=== PATIENT | male | born 1960 | race American Indian/Alaskan Native ===

== ENCOUNTER 2020-08-18 16:29 | Emergency (ER) | payer OTHER, SELFPAY ==
[2020-08-18] MEDS ORDERED: ASPIRIN 325 MG TAB PO ONE (17:08)
--- NOTE | 2020-08-18 17:57 | XRay Report ---
CHEST 2 VIEWS INDICATION / CLINICAL INFORMATION: CP. COMPARISON: None available. FINDINGS: SUPPORT DEVICES: Left-sided cardiac conduction device. HEART / MEDIASTINUM: No significant abnormality. LUNGS / PLEURA: No significant pulmonary or pleural abnormality. No pneumothorax. ADDITIONAL FINDINGS: No significant additional findings. IMPRESSION: 1. No acute cardiopulmonary abnormality. Signer Name: Rafael Hall MD Signed: 08/18/2020 5:53 PM Workstation Name: [id number]
[2020-08-18 18:18] LABS: Basophils % (Auto) 0.5 % (0.0-1.8); Eosinophils % (Auto) 0.4 % (0.0-4.3); Hematocrit 44.1 % (35.5-45.6); Hemoglobin 15.2 gm/dl (11.8-15.2); Lymphocytes # (Auto) 1.9 K/mm3 (1.2-5.4); Lymphocytes % (Auto) 19.7 % (13.4-35.0); Mean Corpuscular HGB Conc 34 % (32-34); Mean Corpuscular Volume 93 fl (84-94); Monocytes # (Auto) 0.7 K/mm3 (0.0-0.8); Monocytes % (Auto) 7.9 % (0.0-7.3); Platelet Count 282 K/mm3 (140-440); Red Blood Count 4.73 M/mm3 (3.65-5.03); Red Cell Distribution Width 13.2 % (13.2-15.2)
[2020-08-18 18:40] LABS: Alanine Aminotransferase 20 units/L (7-56); Albumin 4.2 g/dL (3.9-5); BUN/Creatinine Ratio 9; Blood Urea Nitrogen 10 mg/dL (9-20); Calcium 9.3 mg/dL (8.4-10.2); Hemolysis Index 14
--- NOTE | 2020-08-18 20:01 | Event Note ---
ED Screening Note Date of service: 08/18/20 Time: 19:54 ED Screening Note: 59-year-old male patient presents to the emergency department for chest pain evaluation and mental health evaluation. CHEST PAIN: Patient complains of left-sided chest pain for 3 days. Describes the pain as a burning sensation. 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 He has been prescribed nitroglycerin by his die finisher forging to use as needed. States he has not taken his nitroglycerin because he does not have the medication with him. He left the medicine behind when he came to [place] from out of state. He is unsure if he has ever undergone cardiac catheterization. Patient was reportedly evaluated at [facility] for his chest pain last week. MENTAL HEALTH: Patient complains of auditory hallucinations. He has a history of schizophrenia. He has been out of his psychiatric medications due to recent relocation. He states the voices are "saying nasty things to him." When asked about suicidal ideation, patient "sometimes I do but I'm trying not to go there." Patient states, "I don't feel safe going back out onto the streets." General: Awake, appropriately interactive, no acute distress. Neck: Supple. Full range of motion intact. Cardiovascular: Normal peripheral perfusion. Pulmonary: No respiratory distress. Patient is speaking normally without use of accessory muscles. Skin: No apparent rashes or lesions. Neurological: No facial asymmetry. Speech is clear. Follows commands. Patient is alert and oriented. Musculoskeletal: Moves all four extremities spontaneously with normal range of motion. Psych: Cooperative. Appropriate mood and affect. I have greeted and performed a focused rapid initial assessment of this patient. A comprehensive ED assessment and evaluation of the patient, analysis of all test results, and completion of the medical decision-making process will be conducted by additional ED providers. This initial assessment/diagnostic orders/clinical plan/treatment(s) is/are subject to change based on patients health status, clinical progression and re-assessment. Further treatment and workup at subsequent clinical provider's discretion. Patient/guardian urged not to elope from the ED as their condition may be serious if not clinically assessed and managed.
--- NOTE | 2020-08-18 22:24 | Emergency Department Report ---
ED Psych HPI - General Chief Complaint: Chest Pain Stated Complaint: CHEST PAIN Time Seen by Provider: 08/18/20 22:10 Source: patient Mode of arrival: Ambulatory - History of Present Illness Initial Comments: CC: "I have not been feeling good in a while. The voices in my head make my heart hurt. I have not been feeling well for a long time." HPI: This is a 59 yo male with hx of schizophrenia in pacemaker in situ who presents with hallucinations, depressed mood and chest pain. Patient lives in a town outside of [facility]. Recently he ook a [employer] to [place] in order in order to get away from his life in [place]. At the [employer] station, he became ill. He went to [facility] on Tuesday for evaluation for chest pain. He was discharged. He explained that the staff at the outside hospital did not realize that "I needed help." He needed mental health resources and [place]. He wanted to be placed at a rehab facility near [place]. His family members live in [place] and another city in [place]. Patient states that "my heart hurt". However his main concern is hallucinations. He states that his mind is just racing. No previous history of heart attack. Chest pain occurs when he becomes upset. He is currently homeless. He slept on the side of the highway last night. He does receive disability payments. He does have income. He is insured with Medicare. He spoke with his fiance and older brother today per phone. However he does not have a plan to return to [place] or to be with his family members as well [place]. He denies suicidal ideation or homicidal ideation. He does have auditory hallucinations. He states that he has been compliant with psychiatric medications. Currently he does not feel that his medication regimen is effective. MD Complaint: feels depressed, other (Racing thoughts auditory hallucinations) -: week(s) (Several weeks) Associated Psychiatric Symptoms: depression, racing thoughts, auditory hallucinations History of same: Yes Quality: constant Improves With: none Worsens With: none Context: significant life stressor (Recently moved from [place]) Associated Symptoms: other (Chest pain) Treatments Prior to Arrival: other (Evaluated outside hospital) - Related Data Previous Rx's Medication Instructions Recorded Last Taken Type risperiDONE [RisperDAL] 1 mg PO BID #60 tablet 08/19/20 Unknown Rx Allergies Allergy/AdvReac Type Severity Reaction Status Date / Time No Known Allergies Allergy Verified 08/19/20 08:05 ED Review of Systems ROS: Stated complaint: CHEST PAIN Other details as noted in HPI Comment: All other systems reviewed and negative Constitutional: denies: fever, malaise Respiratory: denies: cough Cardiovascular: chest pain Gastrointestinal: denies: abdominal pain Skin: denies: rash, lesions ED Past Medical Hx - Past Medical History Previous Medical History?: Yes Hx Arthritis: Yes Hx Psychiatric Treatment: Yes (Schizophrenia) Additional medical history: Pacemaker - Surgical History Past Surgical History?: Yes Additional Surgical History: Pacemaker - Family History Family history: other (Patient is unable to recall family history) - Social History Smoking Status: Current Every Day Smoker Substance Use Type: None - Medications Home Medications: Home Medications Medication Instructions Recorded Confirmed Last Taken Type risperiDONE [RisperDAL] 1 mg PO BID #60 tablet 08/19/20 Unknown Rx ED Physical Exam - General Limitations: No Limitations General appearance: alert, in no apparent distress, other (Tearful, dirty clothing) - Head Head exam: Present: atraumatic, normocephalic - Eye Eye exam: Present: conjunctival injection. Absent: scleral icterus - ENT ENT exam: Present: mucous membranes moist - Neck Neck exam: Present: normal inspection, full ROM - Respiratory Respiratory exam: Present: normal lung sounds bilaterally. Absent: respiratory distress, wheezes, rales, stridor - Cardiovascular Cardiovascular Exam: Present: regular rate, normal rhythm, normal heart sounds. Absent: systolic murmur, diastolic murmur, rubs, gallop - GI/Abdominal GI/Abdominal exam: Present: soft, normal bowel sounds. Absent: distended, tenderness, guarding, rebound - Rectal Rectal exam: Present: deferred - Extremities Exam Extremities exam: Present: normal inspection - Neurological Exam Neurological exam: Present: alert, oriented X3 - Psychiatric Psychiatric exam: Present: normal affect, depressed - Skin Skin exam: Present: warm, dry, intact, normal color. Absent: rash ED Course Vital Signs 08/18/20 08/18/20 08/19/20 17:06 23:04 08:01 Temperature 97.8 F Pulse Rate 63 Respiratory 18 18 18 Rate Blood Pressure [Right] O2 Sat by Pulse 99 99 Oximetry 08/19/20 08:04 Temperature 97.8 F Pulse Rate 69 Respiratory 18 Rate Blood Pressure 106/70 [Right] O2 Sat by Pulse 96 Oximetry ED Medical Decision Making - Lab Data Result diagrams: 08/18/20 17:56 08/18/20 17:56 Laboratory Results - last 24 hr 08/18/20 08/18/20 08/18/20 17:56 17:56 19:38 WBC 9.5 RBC 4.73 Hgb 15.2 Hct 44.1 MCV 93 MCH 32 MCHC 34 RDW 13.2 Plt Count 282 Lymph % (Auto) 19.7 [place] % (Auto) 7.9 H Eos % (Auto) 0.4 Baso % (Auto) 0.5 Lymph # (Auto) 1.9 [place] # (Auto) 0.7 Eos # (Auto) 0.0 Baso # (Auto) 0.0 Seg Neutrophils % 71.5 H Seg Neutrophils # 6.8 Sodium 142 Potassium 4.1 Chloride 106.8 Carbon Dioxide 27 Anion Gap 12 BUN 10 Creatinine 1.1 Estimated GFR > 60 BUN/Creatinine Ratio 9 Glucose 81 Calcium 9.3 Total Bilirubin 0.90 AST 21 ALT 20 Alkaline Phosphatase 75 Troponin T < 0.010 < 0.010 Total Protein 6.7 Albumin 4.2 Albumin/Globulin Ratio 1.7 TSH Salicylates Acetaminophen Plasma/Serum Alcohol 08/18/20 08/18/20 08/18/20 20:05 20:05 20:05 WBC RBC Hgb Hct MCV MCH MCHC RDW Plt Count Lymph % (Auto) [place] % (Auto) Eos % (Auto) Baso % (Auto) Lymph # (Auto) [place] # (Auto) Eos # (Auto) Baso # (Auto) Seg Neutrophils % Seg Neutrophils # Sodium Potassium Chloride Carbon Dioxide Anion Gap BUN Creatinine Estimated GFR BUN/Creatinine Ratio Glucose Calcium Total Bilirubin AST ALT Alkaline Phosphatase Troponin T Total Protein Albumin Albumin/Globulin Ratio TSH 0.928 Salicylates < 0.3 L Acetaminophen 5.0 L Plasma/Serum Alcohol 08/18/20 20:05 WBC RBC Hgb Hct MCV MCH MCHC RDW Plt Count Lymph % (Auto) [place] % (Auto) Eos % (Auto) Baso % (Auto) Lymph # (Auto) [place] # (Auto) Eos # (Auto) Baso # (Auto) Seg Neutrophils % Seg Neutrophils # Sodium Potassium Chloride Carbon Dioxide Anion Gap BUN Creatinine Estimated GFR BUN/Creatinine Ratio Glucose Calcium Total Bilirubin AST ALT Alkaline Phosphatase Troponin T Total Protein Albumin Albumin/Globulin Ratio TSH Salicylates Acetaminophen Plasma/Serum Alcohol < 0.01 - EKG Data -: EKG Interpreted by Me EKG shows normal: axis, intervals, QRS complexes, ST-T waves - EKG Data 08/18/20 22:27 EKG obtained 1712 EKG interpreted by me Normal sinus rhythm rate 60 bpm normal axis normal intervals no ST-T sign ischemia there is intermittent atrial pacing - Radiology Data Radiology results: report reviewed Patient Name: CYNTHIA NOVA Gender: Male Date of : 1960 Home Phone: Referring Provider: LEFTY, ED Organization: [facility] Accession Number: [id number] Requested Date: August 18, 2020 17:08 Report Status: Final Requested Procedure: 1 Procedure Description: XR chest routine 2V Modality: XR Findings Reporting MD: Rafael Hall Dictation Time: August 18, 2020 16:53 Tail End Rider: Not available Nursing Agency Manager Date: CHEST 2 VIEWS INDICATION / CLINICAL INFORMATION: CP. COMPARISON: None available. FINDINGS: SUPPORT DEVICES: Left-sided cardiac conduction device. HEART / MEDIASTINUM: No significant abnormality. LUNGS / PLEURA: No significant pulmonary or pleural abnormality. No pneumothorax. ADDITIONAL FINDINGS: No significant additional findings. IMPRESSION: 1. No acute cardiopulmonary abnormality. Signer Name: Rafael Hall MD Signed: 08/18/2020 4:53 PM Workstation Name: [id number] - Medical Decision Making 1. Noncardiac chest pain: Patient has normal EKG troponin x2 negative. Normal chest radiograph. I do not feel that patient has acute emergent cause of chest pain. Patient admits that he has main concern on the "voices" in his head and racing thoughts. HEART score 2 2. Schizophrenia: Patient reports auditory loose [place]. He does not appear to respond to internal stimuli. I have had extensive conversation with this gentleman. I explained that due to his social situation will be a difficult for him to obtain resources without address. I strongly encouraged him to return to [facility] or unite with his family in [facility] [place]. However he does not have a plan to do so. He has contacted his fiance and brother recently. Due to poor insight I will request mental health evaluation by our psychiatric team. Also will request case management consultation. I anticipate discharge. 3. Social situation: Patient has been displaced from his home in [place] by his own discretion. He told me that he slept on the side of the highway last night. Our ED secretary of police informed me that his fimaru has called the ED several times. Heide wants ED staff member to take patient to the [employer] station. The fimarue is willing to purchase a bus ticket for him to return home. However patient will need assistance to purchase his blood stick is since he does not have an ID. Case management consultation has been ordered. I have reviewed the labs EKG chest radiograph. Diagnostics obtained in the emergency department are unremarkable and within normal limits Mr. Nova is medically clear for psychiatric care. I spoke with Beverly reyes [phone]. She explains that patient does this from "time to time". He left his cell phone ID and keys at the home in [place]. She has been looking for him. Her phone number is [phone]. She wants transportation arranged [facility]. Patient was evaluated by psychiatrist and case management. Patient was discharged to the care of his family member. Critical care attestation.: If time is entered above; I have spent that time in minutes in the direct care of this critically ill patient, excluding procedure time. ED Disposition Clinical Impression: Chest wall pain, Schizophrenia, Problem situation relating to social and personal history Disposition: DC-01 TO HOME OR SELFCARE Is pt being admited?: No Does the pt Need Aspirin: No Condition: Stable Instructions: Nonspecific Chest Pain, Adult, Nonspecific Chest Pain, Adult, Dbgv-on-Awhl Additional Instructions: Follow-up per mental health provider. Referral to [facility] for primary care. Professional and Agency Contacts To help Res[facility] Crises(04/10) [place] Crisis Line: Suicide Prevention Line: Crisis Text Line: Text START to 926582 Emergency: 911 Outpatient COMMUNITY Behavioral Health Resources: RAMESH: [facility] [address] [place], [place] [address] HAGUE: [facility] [address] [place] [address] MALABAR: [facility] - [address] [place] [address] Tuesday thru Tuesday - 8am - 5pm [facility] Address: [address], [place] [address] [facility] Address: [address] [place] [address] Tuesday thru Tuesday- 7am-2pm [facility] Address: [address] [place] [address] Tuesday thru Tuesday: 8:30AM-5PM OUTPATIENT MENTAL HEALTH RESOURCES [facility], [address] [place] [address] [facility] Chelly Pina MD: [address] [facility] [address] [place] [address] [facility]: [address] [place] [address] [place] [address] [phone] [facility]: [address] [facility] [address] [place] [address] [phone] [facility]: [address] [facility] [address] [facility] [id number] [facility]: [address] [place] [address] Jean Paul Read MD: [address] [facility] [id number] [place] [facility]: [address] [facility] [place], [place] [id number] [phone] [place] CRISIS AND ACCESS LINE: * Prescriptions: risperiDONE [RisperDAL] 1 mg PO BID #60 tablet Referrals: [facility] [Provider Group] - 3-5 Days PRIMARY CARE, [Primary Care Provider] - 3-5 Days HEART Score - HEART Score History: Slightly suspicious EKG: Normal Age: 45-65 Risk factors: 1-2 risk factors Troponin: Troponin T < 0.010 ng/mL (0.00-0.029) 08/18/20 19:38 Troponin: < normal limit HEART Score: 2
[2020-08-19 08:05] VITALS: BP 106/70
[2020-08-19 08:35] LABS: Bilirubin,Urine NEG (Negative); Blood,Urine NEG (Negative); Color,Urine Yellow (Yellow); Mucus,Urine FEW /HPF; Protein,Urine <15 mg/dL mg/dL (Negative)
[2020-08-19 08:43] LABS: Amphetamine Screen,Urine Negative; Cocaine Screen,Urine Negative; Methadone Screen,Urine Negative; Opiate Screen,Urine Negative
[2020-08-19 09:37] LABS: Benzodiazepines Screen,Urine PRESUMPTIVE POSITIVE
[2020-08-19 09:38] LABS: Cannabinoid Screen,Urine PRESUMPTIVE POSITIVE
--- NOTE | 2020-08-19 11:04 | Consultation ---
History of Present Illness - Reason for Consult Consult date: 08/19/20 Reason for consult: hallucinations - History of Present Psychiatric Illness Per ED Note: Patient complains of left-sided chest pain for 3 days. Describes the pain as a burning sensation. 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 He has been prescribed nitroglycerin by his electrician crane maintenance to use as needed. States he has not taken his nitroglycerin because he does not have the medication with him. He left the medicine behind when he came to [place] from [place] of state. He is unsure if he has ever undergone cardiac catheterization. Patient was reportedly evaluated at [facility] for his chest pain last week. Patient complains of auditory hallucinations. He has a history of schizophrenia. He has been out of his psychiatric medications due to recent relocation. He states the voices are "saying nasty things to him." When asked about suicidal ideation, patient "sometimes I do but I'm trying not to go there." Patient states, "I don't feel safe going back out onto the streets." Davi Nova is a 59y/o male patient who states he came into the hospital for chest pain. He is a/o x 3. He is calm, cooperative and pleasant. He says "I wasn't feeling too good." The patient says "so I came in and got an evaluation." The patient denies SI/HI, he says "I wasn't that. It's hallucinations I was having." The patient says he hears mumbling. He denies the hallucinations being threatening or harmful in nature. The patient says he's been off his medications for about a week. He says he takes Risperidone 1mg po BID for schizophrenia. The patient denies any illicit drug, or alcohol. The patient is positive for benzos and THC. He says he smokes ppd of cigs. PAST PSYCHIATRIC HISTORY: Diagnoses: schizophrenia Suicide attempts or Self-harm behavior: yes Prior psychiatric hospitalizations: Yes Substance Abuse history: Denies Previous psychiatric medications tried: Risperidone Outpatient treatment: Yes PAST MEDICAL HISTORY: pacemaker Family Psychiatric History: None reported or documented SOCIAL HISTORY Marital Status: Single Living Arrangements: with girlfriend Employment Status: unemployed Access to guns/weapons: none reported Education: History of Abuse: none reported Legal History: none reported REVIEW OF SYSTEMS Constitutional: Negative for weight loss ENT: Negative for stridor Respiratory: Negative for cough or hemoptysis All other systems reviewed and are negative MENTAL STATUS EXAMINATION General Appearance and Behavior: Age appropriate, good hygiene, wearing appropriate clothes, good eye contact, cooperative, calm and polite Cooperation: engaged Psychomotor Behavior: Psychomotor normal Mood: okay Affect and affective range: Congruent with stated mood Thought Process: Goal directed Thought Content: None Speech: Normal tone and pace Suicidal Ideation: Denies Homicidal Ideation: Denies Hallucinations: Auditory, mumbling Impulse Control: Unimpaired Insight and Judgment: Limited Memory: Limited Attention: Undivided attention impaired Orientation: Alert, oriented x 3 Assessment and Plan (1) Schizophrenia Current Visit: Yes Status: Acute Treatment Plan Restart home Risperidone 1mg po BID Please give first dose of Risperidone prior to patient being discharged Sitter: defer to primary Medical: Per primary Disposition: Do not recommend acute psychiatric inpatient treatment. The patient understands that if SI/HI are to return that he should seek immediate assistance including but not limited to 911/ER and/or crisis hotline. The snack foods mixer operator is to further discuss the safety plan, give resources for CBT, and outpatient psychiatry for med management The patient is to have a transportation pass if necessary The patient is to follow up with psych in 7 to 14 days upon discharge. Will sign off. thank you for this consult Case staffed with Dr. Pastor Medications and Allergies Allergies Allergy/AdvReac Type Severity Reaction Status Date / Time No Known Allergies Allergy Verified 08/19/20 08:05 Home Medications Medication Instructions Recorded Confirmed Last Taken Type risperiDONE [RisperDAL] 1 mg PO BID #60 tablet 08/19/20 Unknown Rx Mental Status Exam - Vital signs Last Vital Signs Temp 97.8 F 08/19/20 08:04 Pulse 69 08/19/20 08:04 Resp 18 08/19/20 08:04 BP 106/70 08/19/20 08:04 Pulse Ox 96 08/19/20 08:04 Results Result Diagrams: 08/18/20 17:56 08/18/20 17:56 Abnormal lab results 08/18/20 08/18/20 08/18/20 Range/Units 17:56 20:05 20:05 [place]itus % (Auto) 7.9 H (0.0-7.3) % Seg Neutrophils % 71.5 H (40.0-70.0) % Salicylates < 0.3 L (2.8-20.0) mg/dL Acetaminophen 5.0 L (10.0-30.0) ug/mL All other labs normal.
[2020-08-19] MEDS ORDERED: risperiDONE 1 MG TAB PO ONE (12:00)
--- NOTE | 2020-08-28 10:30 | Electrocardiograph Report ---
[facility] Test Date: 2020-08-18 Test Time: 17:12:07 Pat Name: CYNTHIA GRADY Department: Room: Gender: M Painter Decorator: LINA : 1960 Requested By: MARY HAWKINS Order Number: [id number] Reading MD: Sejal Almaguer Measurements Intervals [place] Rate: 62 P: IN: 173 QRS: 47 QRSD: 89 T: 66 QT: 379 QTc: 387 Interpretive Statements Atrial-paced complexes No previous ECG available for comparison Electronically Signed On 08-28-2020 10:30:20 EDT by Sejal Almaguer
== END 2020-08-19 14:07 | disposition home or self-care (01) ==
LOC: ED 16:29 → EEVIPCON 16:29 → ED 08-19 14:07
DX: R07.89 Other chest pain (principal); Z20.822 Contact with and (suspected) exposure to COVID-19; F20.9 Schizophrenia, unspecified; F17.200 Nicotine dependence, unspecified, uncomplicated; M19.90 Unspecified osteoarthritis, unspecified site; Z95.0 Presence of cardiac pacemaker; Z79.899 Other long term (current) drug therapy
CPT/HCPCS: 36415; 71046; 80053; 80307; 81001; 84443; 84484; 85025; 93005; 99284; U0003; 80320; G0480